=== PATIENT | female | born 1975 | race Caucasian/White ===

== ENCOUNTER 2021-05-23 07:49 | Outpatient (CLI) | payer OTHER ==
--- NOTE | 2021-05-23 12:40 | XRAY Report ---
PROCEDURE: Ankle 3 View RT INDICATIONS: RIGHT ANKLE FRACTURE TECHNIQUE: 3 views of the ankle were acquired. COMPARISON: April 15, 2019 FINDINGS: Bones: Redemonstrated lateral malleolar fracture without significant change or overt callus formation . Ankle mortise is normally aligned. The remaining osseous structures appear maintained. Small calc aneal enthesophytes. Soft tissues: No tibiotalar joint effusion. IMPRESSION: No significant interval change. Reviewed by: Paul Layne MD on 05/23/2021 12:39 PM PST Approved by: Paul Layne MD on 05/23/2021 12:39 PM PST Station ID: [id number]
== END 2021-05-23 07:50 | disposition home or self-care (01) ==
LOC: DI.WOS 07:49
PROVIDERS: ATTEND Orthopaedic Surgery
DX: S82.64XD Nondisplaced fracture of lateral malleolus of right fibula, subsequent encounter for closed fracture with routine healing (principal)